=== PATIENT | female | born 1980 | race Asian ===

== ENCOUNTER 2024-02-10 17:07 | Emergency (ER) | payer SELFPAY ==
[2024-02-10 17:09] VITALS: BP 113/77; PULSE 88; RESP 18; TEMP 35.9; O2SAT 100; BMI 21.7
[2024-02-10 17:14] VITALS: BP 113/77; PULSE 88; RESP 18; TEMP 35.9; O2SAT 100
--- NOTE | 2024-02-10 17:27 | ED.RN ---
PT'S SAID PT IS CURRENTLY BLEEDIG LIKE A PERIOD, BUT HE SAID IT HAS BEEN GOING ON FOR 2 MONTHS. PT ALSO WAS BLEEDING VAGINALLY 3 WEEKS PRIOR TO THAT. SHE WAS HAVING 5-6 MONTHS WITHOUT A PERIOD AND THE DR SAID IT COULD BE HORMONES. THEY'RE CONCERNED THAT SHE IS HAVING R & L FLANK PAIN, URINARY URGENCY AND RETENTION FEELING ACCOMPANIED WITH THE VAGINAL BLEEDING. PT'S SAID SHE ALSO HAS SWELLING OF THE FACE, HANDS, AND LEGS.
--- NOTE | 2024-02-10 18:08 | US_ITS ---
EXAM: US PELVIS TRANSVAGINAL CLINICAL INDICATION: Dysfunctional uterine bleeding TECHNIQUE: Transvaginal pelvic ultrasound was performed with grayscale and color Doppler imaging. Transvaginal imaging was used for better evaluation of the endometrium and adnexa. COMPARISON: No relevant prior studies available. FINDINGS: UTERUS/CERVIX: 7.6 cm x 4.7 cm x 4.9 cm. Retroverted. There is no uterine mass. Normal 1.2 cm endometrial stripe thickness, it is mildly hyperechoic but heterogeneous. RIGHT OVARY: Unremarkable. 1.5 cm x 0.9 cm x 1.7 cm. Non-enlarged, normal echogenicity. Blood flow is present in the right ovary. LEFT OVARY: 2.4 cm x 1.8 cm x 1.9 cm with a simple-appearing dominant follicle of 1.5 cm x 1.5 cm x 1.2 cm. Non-enlarged, normal echogenicity. Blood flow is present in the left ovary. FREE FLUID: None. BLADDER: Empty bladder which cannot be evaluated with this probe. US/Transvaginal Non- IMPRESSION: Endometrial thickness is within normal limits but mildly heterogeneous. Small dominant left ovarian follicle. Electronically Signed: Tracy Crain MD at 19:43 EST ,
[2024-02-10 18:14] VITALS: BP 108/75; PULSE 70; RESP 16; TEMP 36.7; O2SAT 98
[2024-02-10 18:23] LABS: Bacteria 0 SEEN /hpf (None Seen); Mucous, Urine 0 SEEN /hpf (<or=2+); White Blood Cells 0 SEEN /hpf (0-5)
[2024-02-10 18:26] LABS: Absolute Lymphocyte Count 1.58 X10^3/uL (0.83-4.51); Absolute Neutrophil Count 4.3 X10^3/uL (2.0-7.7); Basophil# 0.07 X10^3/uL; Basophil% 1.1 % (0-1); Eosinophils% 1.5 % (0-5); Hematocrit 33.3 % (37-47); Hemoglobin 10.2 g/dL (12.0-15.0); Lymphocyte # 1.58 X10^3/ul (0.83-4.51); Lymphocyte % 24.3 % (19-41); Mean Corp Hgb Conc 30.6 g/dL (32-36); Mean Corpuscular Hgb 26.7 pg (27.0-32.0); Mean Corpuscular Volume 87.2 fL (81-99); Mean Platelet Vol. 9.6 fl (6.2-12.0); Monocyte# 0.46 X10^3/uL; Monocyte% 7.1 % (0-10); NRBC Flagged by Analyzer 0 % (0-5); Neutrophil # 4.28 X10^3/uL (2.7-7.7); Neutrophil % 65.8 % (47-70); Platelet Count 396 K/mm3 (150-450); RBC Distribution Width CV 12.3 % (11.6-14.6); RBC Distribution Width SD 39.4 fl (35.1-43.9); Red Blood Count 3.82 M/mm3 (4.2-5.4); White Blood Count 6.5 K/mm3 (4.4-11.0)
[2024-02-10 18:26] LABS: Color, Urine Yellow (Yellow); Glucose, Dipstick Normal (Normal); Ketone-Dipstick Negative (Negative); Leukocyte Esterase-Dipstick Negative /ul (Negative); Nitrite-Dipstick Negative (Negative); Occult Blood-Urine 250 /ul (Negative); Protein-Dipstick Negative (Negative); Urine Bilirubin Dipstick Negative (Negative); Urine Clarity Clear (Clear); Urine Urobilinogen Normal (Normal)
[2024-02-10 18:29] LABS: Internal QC Validated? YES +Cl - CLEAR BKGD; Pregnancy, Urine Negative Negative
[2024-02-10 18:33] LABS: Red Blood Cells-Urine 25-50 SEEN /hpf (0-5); Squamous Epithelial Cells - UA 0-5 SEEN /hpf (5-10)
--- NOTE | 2024-02-10 18:42 | ED.VIS.FEGU ---
HPI HPI - Female History of Present Illness Chief Complaint: Complaint Informant: patient and family Narrative Narrative: Patient is a 43-year-old female past medical history presumed irregular periods and heavy vaginal bleeding. She does sometimes she will go months without having a menstrual cycle but there are times she will bleed for 2 months straight. She states that she will have associated pelvic pain and low back pain. She states she has been passing large clots. Denies any lightheadedness or dizziness. He does not have an DEVELOPMENT SYSTEM EFFICIENCY MANAGER. Previously lived in [place] and was evaluated there a year or so ago and told there is nothing to do. States that she go through 4-5 pads a day. No other complaints or concerns reported at this time. Notes her sister had similar issues with apnea and hysterectomy. PFSH PFSH Home Medications ?Medication ?Instructions ?Recorded ?Last Taken ?Type norethindrone acetate 5 mg tablet 5 mg PO DAILY 30 days #41 tabs 02/10/24 Unknown Rx omeprazole 20 mg capsule,delayed 20 mg PO DAILY #30 CAPSULES 02/10/24 Unknown Rx release simethicone 80 mg chewable tablet 80 mg PO QHS PRN abdominal 02/10/24 Unknown Rx distention #10 tabs Allergy/AdvReac Type Severity Reaction Status Date / Time No Known Allergies Allergy Verified 02/10/24 17:30 Social History Smoking Status: Never smoker ROS ROS ED Constitutional Constitutional ED: Denies chills or fever(s) Gastrointestinal Gastrointestinal: Denies nausea or vomiting Genitourinary Genitourinary ED: Reports other Details: Vaginal bleeding, pelvic pain ; Denies hematuria or urinary frequency Integumentary Denies rash Neurologic Neurologic: Denies weakness Hematologic/Lymphatic Hematologic/Lymphatic: Denies easy bleeding or easy bruising EXAM Physical Exam Const Vital Signs: 02/10/24 17:09 02/10/24 17:14 02/10/24 18:14 Temperature 96.7 F L 96.7 F L 98.0 F Temperature Source Temporal Temporal Oral Pulse Rate 88 88 70 Respiratory Rate 18 18 16 Blood Pressure 113/77 113/77 108/75 Blood Pressure Mean 89 89 86 Pulse Ox 100 100 98 Oxygen Delivery Method Room Air Room Air Room Air 02/10/24 19:00 02/10/24 20:00 02/10/24 20:00 Temperature 97.9 F 97.4 F L 97.4 F L Temperature Source Oral Temporal Pulse Rate 66 71 71 Respiratory Rate 16 16 16 Blood Pressure 105/75 115/69 115/69 Blood Pressure Mean 85 84 84 Pulse Ox 98 96 96 Oxygen Delivery Method Room Air Positive well nourished and well developed General Appearance ED: well developed and NAD HEENT Reports moist mucous membranes Eyes PERRL and EOMs intact bilaterally General Eye ED: Negative for pale conjunctiva Neck supple Chest Wall inspection of chest normal and palpation of chest normal Resp normal respiratory effort and clear to auscultation bilaterally Cardio regular rate and regular rhythm GI normal to inspection, nondistended, normoactive bowel sounds, soft to palpation and non-tender Back/Spine no CVA tenderness Neuro oriented x3 Sensorium / Orientation: alert Motor Exam: general weakness Psych mental status grossly normal Skin no rashes or lesions noted and no wounds MDM MDM MDM Narrative Medical decision making narrative: Patient is evaluated for heavy vaginal bleeding with associated pelvic pain and low back pain. This is been going on for months and she is also had a regular periods. Her vital signs are normal. While triage note initially said urinary symptoms after extensive discussion with the patient it sounds like this is vaginal and she is not in fact having dysuria or hematuria. Differential includes anemia, dysfunctional uterine bleeding, pelvic mass. Lower suspicion for or complication of . Will obtain CBC, urinalysis and pelvic ultrasound. Likely patient will require DEVELOPMENT SYSTEM EFFICIENCY MANAGER referral Patient has a mild microcytic anemia with a hemoglobin 10.2. Vital signs are normal and expect this is chronic. Urinalysis shows blood contamination but otherwise negative. Not consistent with infection. Pelvic Ultrasound does show endometrial thickness that is within normal limit but mildly heterogenous and a small dominant left ovarian follicle. case is discussed with DEVELOPMENT SYSTEM EFFICIENCY MANAGER on-call, Dr. Snyder. She recommends follow-up as patient likely require an endometrial biopsy. She does recommend prescription of Aygestin if the bleeding is severe at a taper dose. She is given the patient's information and she will have the office call them on Tuesday to schedule outpatient follow-up. Patient is discharged with these instructions. They verbalized agreement or stands plan. Patient does note that for months he has been having heartburn symptoms. Will be given a prescription for omeprazole as well. Is given referral for primary care doctor. Instructed also take ibuprofen as needed for pain. Lab Data Attestation: I reviewed the patient's lab results. Labs: Laboratory Results - last 24 hr 02/10/24 02/10/24 17:31 18:16 WBC 6.5 RBC 3.82 L Hgb 10.2 L Hct 33.3 L MCV 87.2 MCH 26.7 L MCHC 30.6 L RDW Std Deviation 39.4 RDW Coeff of Jong 12.3 Plt Count 396 MPV 9.6 Immature Gran % (Auto) 0.200 Neut % (Auto) 65.8 Lymph % (Auto) 24.3 [place] % (Auto) 7.1 Eos % (Auto) 1.5 Baso % (Auto) 1.1 H Absolute Neuts (auto) 4.3 Absolute Lymphs (auto) 1.58 Nucleated RBC % 0 Urine Color Yellow Urine Clarity Clear Urine pH 7.0 Ur Specific Venus 1.010 Urine Protein Negative Urine Glucose (UA) Normal Urine Ketones Negative Urine Occult Blood 250 H Urine Nitrite Negative Urine Bilirubin Negative Urine Urobilinogen Normal Ur Leukocyte Esterase Negative Urine RBC 25-50 SEEN Urine WBC 0 SEEN Ur Squamous Epith Cells 0-5 SEEN Urine Bacteria 0 SEEN Urine Mucus 0 SEEN Urine Test Negative Radiography Diagnostic Testing: Clinical Impression(s) from Imaging Studies Transvaginal US 02/10/24 18:08 IMPRESSION: Endometrial thickness is within normal limits but mildly heterogeneous. Small dominant left ovarian follicle. Electronically Signed: Tracy Crain MD at 19:43 EST Reading Location ID and State: [address] [place] [address] Tel , Service support , Discharge Plan Triage Chief Complaint: Complaint ED Provider: Lea Srinivasan Dx/Rx/DC Orders Clinical Impression: Dysfunctional uterine bleeding, Anemia Instructions: ED Dysfunctional Uterine Bleeding Prescriptions: New norethindrone acetate 5 mg tablet 5 mg PO DAILY 30 Days Qty: 41 0RF Rx Instructions: Take 3 times a day for 3 days, twice a day for 3 days and then after that daily until seen by DEVELOPMENT SYSTEM EFFICIENCY MANAGER omeprazole 20 mg capsule,delayed release(DR/EC) 20 mg PO DAILY Qty: 30 0RF simethicone 80 mg tablet,chewable 80 mg PO QHS PRN (Reason: abdominal distention) Qty: 10 0RF Primary Care Provider: Care Physician,No Primary Referrals: Rashid Lim DO [Non-Staff] - 1-2 Weeks Jennifer Snyder DO [Med Staff - Active Staff] - As soon as possible Care Physician,No Primary [Primary Care Provider] - Activity Restrictions/Additional Instructions: Your lab work showed a mild anemia. This is likely from your heavy vaginal bleeding. Your ultrasound showed slight irregularity to uterine lining that needs to be followed up with DEVELOPMENT SYSTEM EFFICIENCY MANAGER. If the office does not call you on Tuesday please call them to schedule an appointment soon as possible. Also given referral for primary care doctor. You been prescribed a medicine to take should your bleeding become very heavy (bleeding through 1 pad an hour for more than 2 hours) or if you feel that the bleeding is getting worse. You may also try 600 mg [id number] ibuprofen every 6 hours to see if this helps with the bleeding and pelvic discomfort. Print Language: Yakut Disposition Disposition: Home, Self Care Discharge Date/Time: 02/10/24 20:44
[2024-02-10 19:00] VITALS: BP 105/75; PULSE 66; RESP 16; TEMP 36.6; O2SAT 98
[2024-02-10 20:00] VITALS: BP 115/69; PULSE 71; RESP 16; TEMP 36.3; O2SAT 96
== END 2024-02-10 20:44 | disposition home or self-care (01) ==
PROVIDERS: Emergency Provider Emergency Medicine; Visit Provider Emergency Medicine
DX: N93.8 Other specified abnormal uterine and vaginal bleeding (principal); R93.89 Abnormal findings on diagnostic imaging of other specified body structures; D64.9 Anemia, unspecified
CPT/HCPCS: 76830; 81001; 81025; 85025; 99282; A4216